=== PATIENT | female | born 1940 | race Caucasian/White ===

== ENCOUNTER 2017-02-09 19:50 | Inpatient (IN) ==
--- NOTE | 2017-02-09 20:17 | Emergency Department Note ---
Addendum entered and electronically signed by Max Mariano DO 02/09/17 22:09 : EKG shows NSR with HR of 93. No change from prior. Alexis is normal. No ST deviation. Original Note: Disposition Clinical Impression: Abnormal CT of brain TIA (transient ischemic attack) Qualifiers: Transient cerebral ischemia type: unspecified Qualified Code(s): G45.9 - Transient cerebral ischemic attack, unspecified Disposition: Admitted As Inpatient Condition: Good Referrals: Unassigned,Provider [Non-Partnered Physician] - Forms: ED Satisfaction Letter General Adult HPI - General Chief complaint: ED Altered Mental Status Stated complaint: confusion Time Seen by Provider: 02/09/17 20:04 Source: patient, family Limitations: no limitations Nursing Notes Reviewed: Yes Vital Signs Reviewed: Yes - History of Present Illness HPI Narrative: 76-year-old female who reports that she was talking on the phone with her friend and she became acutely confused while on the phone. She did not have slurred speech but could not find the words and was becoming very frustrated because she was unable to find the words for anything that she was trying to say. It began at approximately 7 PM and lasted approximately 10 minutes. It has since completely resolved. She denies having any new paresthesias or weakness while the event occurred. She does admit to a prior history of a TIA a few years ago during which she had a very similar episode. She was placed on aspirin and a statin after her last episode. Her other medical problems include hypertension for which she takes hydrochlorothiazide and GERD. Pain Scale: 0 Improves with: nothing Worsens with: nothing Associated symptoms: Reports: denies other symptoms Treatments Prior to Arrival: none - Related Data Home Medications Medication Instructions Recorded Confirmed Aspirin [Lo-Dose Aspirin EC] 81 mg PO QDPC 11/08/16 11/08/16 Atorvastatin Calcium [Lipitor] 20 mg PO HS 11/08/16 11/08/16 Cetirizine HCl [Zyrtec] 5 mg PO BID 11/08/16 11/08/16 Lansoprazole [Prevacid] 15 mg PO DAILY 11/08/16 11/08/16 Oxybutynin [Ditropan] 5 mg PO BID 11/08/16 11/08/16 Potassium Chloride [Klor-Con 10] 30 meq PO TID 11/08/16 11/08/16 diazePAM [Valium] 5 mg PO BID 11/08/16 11/08/16 hydroCHLOROthiazide 25 mg PO DAILY 11/08/16 11/08/16 [Hydrochlorothiazide] Previous Rx's Medication Instructions Recorded Ibuprofen [Motrin] 600 mg PO Q6HR PRN #60 tab 11/08/16 Allergies Allergy/AdvReac Type Severity Reaction Status Date / Time No Known Allergies Allergy Verified 11/06/16 09:55 All systems ED: reviewed and negative except as stated. Constitutional: Denies: fever ENT ED: Denies: throat pain Cardiovascular: Denies: chest pain Respiratory: Denies: cough Gastrointestinal: Denies: abdominal pain, nausea, vomiting Genitourinary: Denies: dysuria Musculoskeletal: Denies: back pain Integumentary: Denies: rash Neurological: Denies: headache Past Medical History - Past Medical History Medical history: Reports: GERD, hypertension, TIA Psychiatric history: Reports: anxiety - Social History Smoking Status: Never smoker Smokeless Tobacco Status: No Alcohol use: Reports: none Drug use: Reports: none Physical Exam - General Limitations: no limitations General appearance: alert - Head Head exam: atraumatic - Eye Eye exam: Present: normal appearance, PERRL - ENT ENT exam: normal exam, normal oropharynx - Neck Neck exam: Present: normal inspection - Chest Chest inspection: Present: normal inspection - Respiratory Respiratory exam: Present: normal lung sounds bilaterally. Absent: respiratory distress - Cardiovascular Cardiovascular exam: Present: regular rate, normal rhythm - Abdominal Exam Abdominal exam: Present: soft, Non-Tender - Extremities Exam Extremities exam: Present: normal inspection - Neurological Exam Neurological exam: Present: alert, oriented X3 - Psychiatric Psychiatric exam: Present: normal affect, normal mood - Skin Skin exam: Present: warm, dry Course Course Narrative: Her symptoms are concerning for a TIA. This would be failure on aspirin therapy. We will do a head CT and screening lab work with likely admission to the hospital. Her NIH stroke scale is 0 at this time. She does not have any neurologic symptoms currently. She is not having a headache. Lab work is stable. CT scan of the head shows possible loss of rodriguez-white differentiation in the right MCA distribution. On reexamination she still has an NIH score of 0 and currently has no symptoms. She will be admitted to the hospital for diagnosis of TIA with need for MRI. Her urine is mildly abnormal. Will culture, she does not need empirically treated. She is asymptomatic Vital Signs Temperature 97.7 F 02/09/17 19:54 Pulse Rate 95 02/09/17 19:54 Respiratory Rate 16 02/09/17 19:54 Blood Pressure 175/84 02/09/17 19:54 O2 Sat by Pulse Oximetry 97 02/09/17 19:54 Temperature 97.7 F 02/09/17 19:54 Pulse Rate 95 02/09/17 19:54 Respiratory Rate 16 02/09/17 19:54 Blood Pressure 175/84 02/09/17 19:54 O2 Sat by Pulse Oximetry 97 02/09/17 19:54 Oxygen Delivery Oxygen Delivery Room Air Medical Decision Making - Medical Records Medical records reviewed: Yes I reviewed the patient's medical records. - Lab Data Lab results reviewed: Yes I reviewed the patient's lab results. Result diagrams: 02/09/17 20:19 02/09/17 20:19 Lab Results 02/09/17 02/09/17 02/09/17 Range/Units 20:09 20:19 20:19 WBC 8.5 (4.3-11.1) K/mcL RBC 4.87 (3.82-4.97) M/mcL Hgb 14.2 (11.5-15.4) g/dL Hct 42.4 (35.3-44.9) % MCV 87.1 (83.0-100.0) fL MCH 29.2 (28.0-33.3) pg MCHC 33.5 (31.6-35.5) g/dL RDW 13.2 (11.5-14.5) % Plt Count 247 (140-400) K/mcL MPV 11.7 (9.4-12.4) fL Immature Gran % 0.2 (0-4) % Seg Neutrophils % 53.2 % Lymphocytes % 28.9 % Monocytes % 11.9 % Eosinophils % 5.1 % Basophils % 0.7 % Neutrophils # 4.5 (1.6-8.9) K/mcL Lymphocytes # 2.5 (0.6-4.6) K/mcL Monocytes # 1.0 (0.0-1.3) K/mcL Eosinophils # 0.4 (0.0-0.6) K/mcL Basophils # 0.1 (0.0-0.2) K/mcL PT 11.0 (9.4-12.1) Seconds INR 1.0 Sodium (136-145) mEq/L Potassium (3.5-4.5) mEq/L Chloride (98-109) mEq/L Carbon Dioxide (19-29) mEq/L BUN (7-20) mg/dL Creatinine (0.57-1.11) mg/dL Est GFR ( Amer) (> 60) Est GFR (Non-Af Amer) (> 60) BUN/Creatinine Ratio (6-26) Glucose (70-99) mg/dL POC Glucose 136 H (58-89) Calculated Osmolality (280-300) Calcium (8.6-10.8) mg/dL Troponin I (0-0.03) ng/mL Urine Color (Yellow) Urine Clarity (Clear) Urine pH (5.0-8.0) pH Units Ur Specific Tyler (1.010-1.025) Urine Protein (Neg-Trace) mg/dL Urine Glucose (UA) (Normal) mg/dL Urine Ketones (Negative) mg/dL Urine Blood (Negative) Urine Nitrite (Negative) Urine Bilirubin (Negative) Urine Urobilinogen (Normal) mg/dL Ur Leukocyte Esterase (Negative) Urine Microscopic RBC (0-3) per hpf Urine Microscopic WBC (0-3) per hpf Ur Squamous Epith Cells (None-Few) per lpf Urine Bacteria (None-Few) per hpf Hyaline Casts (None-Few) per lpf Ur Culture Indicated? (NO) 02/09/17 02/09/17 02/09/17 Range/Units 20:19 20:19 20:37 WBC (4.3-11.1) K/mcL RBC (3.82-4.97) M/mcL Hgb (11.5-15.4) g/dL Hct (35.3-44.9) % MCV (83.0-100.0) fL MCH (28.0-33.3) pg MCHC (31.6-35.5) g/dL RDW (11.5-14.5) % Plt Count (140-400) K/mcL MPV (9.4-12.4) fL Immature Gran % (0-4) % Seg Neutrophils % % Lymphocytes % % Monocytes % % Eosinophils % % Basophils % % Neutrophils # (1.6-8.9) K/mcL Lymphocytes # (0.6-4.6) K/mcL Monocytes # (0.0-1.3) K/mcL Eosinophils # (0.0-0.6) K/mcL Basophils # (0.0-0.2) K/mcL PT (9.4-12.1) Seconds INR Sodium 140 (136-145) mEq/L Potassium 3.3 L (3.5-4.5) mEq/L Chloride 108 (98-109) mEq/L Carbon Dioxide 22 (19-29) mEq/L BUN 12 (7-20) mg/dL Creatinine 0.78 (0.57-1.11) mg/dL Est GFR ( Amer) > 60 (> 60) Est GFR (Non-Af Amer) > 60 (> 60) BUN/Creatinine Ratio 15 (6-26) Glucose 157 H (70-99) mg/dL POC Glucose (58-89) Calculated Osmolality 293 (280-300) Calcium 9.2 (8.6-10.8) mg/dL Troponin I 0.00 (0-0.03) ng/mL Urine Color Yellow (Yellow) Urine Clarity Clear (Clear) Urine pH 6.5 (5.0-8.0) pH Units Ur Specific Tyler 1.010 (1.010-1.025) Urine Protein Negative (Neg-Trace) mg/dL Urine Glucose (UA) Normal (Normal) mg/dL Urine Ketones Negative (Negative) mg/dL Urine Blood Negative (Negative) Urine Nitrite Negative (Negative) Urine Bilirubin Negative (Negative) Urine Urobilinogen Normal (Normal) mg/dL Ur Leukocyte Esterase Trace H (Negative) Urine Microscopic RBC 0-3 (0-3) per hpf Urine Microscopic WBC 5-15 H (0-3) per hpf Ur Squamous Epith Cells Many H (None-Few) per lpf Urine Bacteria None Seen (None-Few) per hpf Hyaline Casts None Seen (None-Few) per lpf Ur Culture Indicated? YES A (NO) - Radiology Data Radiology results reviewed: Yes I reviewed the patient's radiology results. - EKG Data EKG #1 EKG attestation: Yes I reviewed and interpreted this EKG. EKG shows normal: sinus rhythm Rate: normal Rhythm: NSR Alexis/QRS: normal When compared to previous EKG there are: no significant changes Interpretation: no acute changes Attestation Statement - Attestation Attestation: I, Fernando Álvarez MD, personally evaluated this patient and discussed their management with the resident physician. I reviewed the resident's note and agree with the documented findings, medical decision making, and plan of care. 76-year-old female presents to the emergency department with a complaint of TIA symptoms earlier this evening. Patient states that she was talking with a friend and she suddenly started having difficulty getting out what she wanted to say. She had trouble finding the words and pronouncing them. She felt a little confused. She states she turned on the news but did not seem to comprehend what they were saying on the television. This started improving rather quickly and symptoms have now totally resolved. She states the entire episode lasted about 30 minutes. She did have some mild numbness in both hands. She states that she had a similar episode about 8 years ago diagnosed as a TIA and she takes aspirin daily. She does admit to some mild headache earlier in the day but none at the time of this episode and no headache at present. On examination patient is a well-developed obese elderly female in no acute distress. She is alert and oriented 3. There is no cyanosis or diaphoresis. Neck is supple and nontender with no lymphadenopathy. No carotid bruits. Breath sounds are clear and equal bilaterally. Heart regular rate and rhythm. Abdomen is soft and nontender with normal bowel sounds. No gross focal neurological deficits. Labs reviewed. Head CT reviewed with some suspicious findings of poor differentiation between the rodriguez and white matter. No acute changes on EKG. The hospitalist, Dr. Wilcox, was consulted and accepted admission of the patient.
[2017-02-09 20:27] LABS: Basophils # 0.1 K/mcL (0.0-0.2); Basophils % 0.7 %; Eosinophils # 0.4 K/mcL (0.0-0.6); Eosinophils % 5.1 %; Hematocrit 42.4 % (35.3-44.9); Hemoglobin 14.2 g/dL (11.5-15.4); Immature Granulocytes % 0.2 % (0-4); Lymphocytes # 2.5 K/mcL (0.6-4.6); Lymphocytes % 28.9 %; Mean Corpuscular HGB Conc 33.5 g/dL (31.6-35.5); Mean Corpuscular Hemoglobin 29.2 pg (28.0-33.3); Mean Corpuscular Volume 87.1 fL (83.0-100.0); Mean Platelet Volume 11.7 fL (9.4-12.4); Monocytes % 11.9 %; Neutrophils # 4.5 K/mcL (1.6-8.9); Platelet Count 247 K/mcL (140-400); Red Blood Count 4.87 M/mcL (3.82-4.97); Red Cell Distribution Width 13.2 % (11.5-14.5); Segmented Neutrophils % 53.2 %
[2017-02-09 20:41] LABS: BUN/Creatinine Ratio 15 (6-26); Blood Urea Nitrogen 12 mg/dL (7-20); Calcium 9.2 mg/dL (8.6-10.8); Carbon Dioxide 22 mEq/L (19-29); Chloride 108 mEq/L (98-109); Glucose 157 mg/dL (70-99); Osmolality,Calculated 293 (280-300); Potassium 3.3 mEq/L (3.5-4.5); Sodium 140 mEq/L (136-145); eGFR For African Americans > 60 (> 60); eGFR For Non-African Americans > 60 (> 60)
[2017-02-09 20:43] LABS: Bilirubin,Urine Negative (Negative); Blood,Urine Negative (Negative); Clarity,Urine Clear (Clear); Color,Urine Yellow (Yellow); Glucose,Urine (UA) Normal (Normal); Ketones,Urine Negative (Negative); Leukocyte Esterase,Urine Trace (Negative); Nitrite,Urine Negative (Negative); PH,Urine 6.5 pH Units (5.0-8.0); Protein,Urine Negative (Neg-Trace); Urobilinogen,Urine Normal (Normal)
[2017-02-09 20:46] LABS: Bacteria,Urine None Seen per hpf (None-Few); Hyaline Casts,Urine None Seen per lpf (None-Few); RBC,Urine 0-3 per hpf (0-3); Squamous Epithelial Cell,Urine Many per lpf (None-Few)
[2017-02-09] MEDS ORDERED: Aspirin 325 MG TABLET PO ONE (22:07)
[2017-02-09] MEDS ORDERED: Ondansetron 4 MG/2 ML VIAL IVP PRN (23:27)
[2017-02-09] MEDS ORDERED: Naloxone 0.4 MG/ML INJ IVP PRN (23:27)
[2017-02-09] MEDS ORDERED: *HR* Morphine 2 MG/ML SYRINGE IVP PRN (23:27)
--- NOTE | 2017-02-09 23:33 | Internal Med History&Physical ---
Date of Encounter: 02/10/17 Time of Encounter: 23:20 Assessment and Plan (1) TIA (transient ischemic attack) Current visit: Yes Status: Acute Transient ischemic attack - with brief confusion and slurred speech - symptoms now resolved Continue Aspirin, Simvastatin EKG - normal sinus rhythm with no acute ST-T changes Troponin - negative Chest x-ray - no acute process CT head - possible loss of rodriguez-white matter differentiation in right temporal region MRI brain - pending Echocardiogram - pending Carotid Doppler - pending Cardiac telemetry, continue to monitor closely Qualifiers: Transient cerebral ischemia type: unspecified Qualified Code(s): G45.9 - Transient cerebral ischemic attack, unspecified (2) Hypertension Current visit: Yes Status: Chronic Essential hypertension, uncontrolled, continue home dose of HCTZ, monitor Qualifiers: Hypertension type: essential hypertension Qualified Code(s): I10 - Essential (primary) hypertension (3) DVT prophylaxis Current visit: Yes Status: Acute Continue heparin subcutaneous Internal Medicine - H&P: HPI Chief complaint: Slurred speech, confusion Admitted From: Emergency Dept Plans for Post Hospital Care: Home History of present illness: Ms. Blanco is a 76 year old female with past medical history of GERD, hypertension, TIA and anxiety. Patient presents the ED with complaints of transient slurred speech and confusion. Examined in the room. Patient is awake and alert. Not in any distress. Able to provide all history. Daughter is at bedside. Patient states at about 6 PM she was on the phone with her friend, and she had a brief episode where she had difficulty verbalizing and was confused. Daughter was contacted and patient was then brought to the ED. Patient now seems to be back at baseline. She is verbalizing well has no focal deficits. She is able to follow commands well. She is awake and alert and oriented 3. Patient denies chest pain, denies shortness of breath, denies palpitations, denies vomiting or headache. She states she has chronic dizziness due to Meniere's disease. Patient states she remembers the episode of her transient confusion and difficulty verbalizing. She states she did not have any focal weakness. She states it lasted for a few minutes and then resolved. Patient states she has had a TIA in the past. No other acute complaints at this time. Initial workup in the ED is negative. MRI of the head is recommended. Patient will also need echocardiogram and carotid Dopplers. Chest x-ray is negative. Patient will be on aspirin and statin. CODE STATUS full code. Past Med Surg Social Fam HX - Past Medical History Medical history: GERD, hypertension, TIA Psychiatric history: anxiety - Past Surgical History Surgical History: hip replacement, knee replacement - Social History Smoking Status: Never smoker Smokeless Tobacco Status: No Alcohol use: none Drug use: none Internal Medicine - H&P: Meds Aspirin [Lo-Dose Aspirin EC] 81 mg PO QDPC 11/08/16 [History] Atorvastatin Calcium [Lipitor] 20 mg PO HS 11/08/16 [History] Cetirizine HCl [Zyrtec] 5 mg PO BID 11/08/16 [History] Oxybutynin [Ditropan] 5 mg PO BID 11/08/16 [History] Potassium Chloride [Klor-Con 10] 30 meq PO TID 11/08/16 [History] hydroCHLOROthiazide [Hydrochlorothiazide] 25 mg PO DAILY 11/08/16 [History] Meclizine [Antivert] 25 mg PO ONCE 02/09/17 [History] Omeprazole Magnesium [Prilosec Otc] 20 mg PO DAILY 02/09/17 [History] Omeprazole [PriLOSEC] 20 mg PO DAILY 02/09/17 [History] Promethazine [Phenergan] 25 mg PO PRN PRN 02/09/17 [History] diazePAM [Valium] 5 mg PO BID 02/09/17 [History] 3 Allergy/AdvReac Type Severity Reaction Status Date / Time No Known Allergies Allergy Verified 11/06/16 09:55 All Systems PM: A 10-system review of systems was performed and is negative for pertinent findings except as documented above in the HPI. - Constitutional Constitutional: no fatigue, no fever(s), no weakness - EENT Eyes: no blurry vision - Cardiovascular Cardiovascular ROS IM: no chest pain, no diaphoresis, no dyspnea, no dyspnea on exertion, no edema, no lightheadedness, no orthopnea, no palpitations, no syncope - Respiratory Respiratory: no cough, no dyspnea, no hemoptysis, no dyspnea on exertion, no wheezing, no chest congestion - Gastrointestinal Gastrointestinal: no abdominal pain, no belching, no bloating, no cramping, no diarrhea, no hematemesis, no hematochezia, no nausea, no vomiting - Genitourinary Genitourinary: no dysuria - Musculoskeletal Musculoskeletal ROS IM: no back pain - Neurological Neurological ROS: abnormal speech, confusion, dizziness, no abnormal gait, no convulsions, no focal weakness, no loss of vision, no numbness, no tingling - Constitutional Vitals: Temp Pulse Resp BP Pulse Ox 97.7 F 82 18 154/78 97 02/09/17 19:54 02/09/17 22:56 02/09/17 22:56 02/09/17 22:56 02/09/17 22:56 General appearance: Present: cooperative, A&O X 3, morbidly obese, pleasant, no acute distress, answers questions appropriately - Head Head exam: Present: atraumatic - Eye Eye exam: Present: EOMI - ENT ENT exam: Present: mucous membranes moist - Respiratory Respiratory exam: Present: CTAB. Absent: rales, rhonchi, wheezes, tachypnea - Cardiovascular Cardiovascular exam: Present: RRR, +S1, +S2 - GI/Abdominal GI/Abdominal exam: Present: soft. Absent: distended, firm, guarding, tenderness - Extremities Exam Extremities exam: Present: radial pulses palpable and symmetrical. Absent: calf tenderness, cyanotic, pedal edema - Neurological Exam Neurological exam: Present: alert, CN II-XII intact, oriented X3, no focal deficits. Absent: pronater drift, facial droop, speech deficit Internal Med - H&P Results - Labs CBC & Chem 7: 02/09/17 20:19 02/09/17 20:19
[2017-02-10] MEDS: *HR* Heparin 5,000 UNIT/ML VIAL SQ SCH ×4 (00:37→23:31)
[2017-02-10 03:10] LABS: BUN/Creatinine Ratio 19 (6-26); Blood Urea Nitrogen 13 mg/dL (7-20); Carbon Dioxide 26 mEq/L (19-29); Chloride 107 mEq/L (98-109); Glucose 119 mg/dL (70-99); Magnesium 1.6 mg/dL (1.6-2.6); Osmolality,Calculated 291 (280-300); Potassium 3.2 mEq/L (3.5-4.5); Sodium 140 mEq/L (136-145); eGFR For African Americans > 60 (> 60); eGFR For Non-African Americans > 60 (> 60)
[2017-02-10] MEDS ORDERED: Famotidine 20 MG/2 ML VIAL IVP SCH (06:00)
[2017-02-10] MEDS: Aspirin Enteric Coated 81 MG Tablet PO SCH (08:20)
[2017-02-10] MEDS: hydroCHLOROthiazide 25 MG TABLET PO SCH (08:20)
--- NOTE | 2017-02-10 12:44 | Neurology - Consult Note ---
Date of Encounter: 02/10/17 Time of Encounter: 09:30 Assessment and Plan (1) TIA (transient ischemic attack) Current Visit: Yes Status: Acute This patient was apparently seems to have symptoms which are quite typical of a TIA to the previous history of TIA in the past for similar episodes now she is back to her baseline as patient has been taking an aspirin on a regular basis and now she had this event I suggest that she should be started on another antiplatelet agent like Plavix and we can discontinue aspirin after 2 days of overlap. She would certainly require stroke workup including MRI of the brain especially when her CT scan does some questionable abnormality need to exclude any structural abnormality And at the same time need to see indeed if she had an infarct on it was only TIA . Patient would also need a carotid duplex as well as echocardiogram and need to monitor her cholesterol. At this time she seems to be back to her baseline do not think that she would require any rehabilitation or physical therapy evaluation Qualifiers: Transient cerebral ischemia type: unspecified Qualified Code(s): G45.9 - Transient cerebral ischemic attack, unspecified (2) Abnormal CT of brain Current Visit: Yes Status: Acute Ct scan shows conCERN of decrease in rodriguez-white differentiation in the temporal lobe will get an MRI to further clarify that (3) Hypertension Current Visit: Yes Status: Chronic Qualifiers: Hypertension type: essential hypertension Qualified Code(s): I10 - Essential (primary) hypertension History of Present Illness HPI: Ms. Blanco is a 76 year old female who is admitted with TIA, according to pt, she was talking on the phone with her friend and she became somewhat confused while on the phone. apparently she could not find the words though she knew what she want to say and because of that frustrated, later when her daughter talk to her on phone she noticed the same but slowly she started coming back to her baseline, it lasted approximately 10 minutes. she was complainig of some tingling in her arms but no weakness, also has mild headaches at that time, she has history of a TIA a few years ago during which she had a very similar episode. She was placed on aspirin and a statin after her last episode. she has history of hypertension for which she takes hydrochlorothiazide. Past Med Surg Social Fam HX - Past Medical History Medical history: GERD, hypertension, TIA Psychiatric history: anxiety - Past Surgical History Surgical History: hip replacement, knee replacement - Social History Smoking Status: Never smoker Smokeless Tobacco Status: No Alcohol use: none Drug use: none Medications and Allergies Aspirin [Lo-Dose Aspirin EC] 81 mg PO QDPC 11/08/16 [History] Atorvastatin Calcium [Lipitor] 20 mg PO HS 11/08/16 [History] Cetirizine HCl [Zyrtec] 5 mg PO BID 11/08/16 [History] Oxybutynin [Ditropan] 5 mg PO BID 11/08/16 [History] Potassium Chloride [Klor-Con 10] 30 meq PO TID 11/08/16 [History] hydroCHLOROthiazide [Hydrochlorothiazide] 25 mg PO DAILY 11/08/16 [History] Meclizine [Antivert] 25 mg PO ONCE 02/09/17 [History] Omeprazole Magnesium [Prilosec Otc] 20 mg PO DAILY 02/09/17 [History] Omeprazole [PriLOSEC] 20 mg PO DAILY 02/09/17 [History] Promethazine [Phenergan] 25 mg PO PRN PRN 02/09/17 [History] diazePAM [Valium] 5 mg PO BID 02/09/17 [History] 3 Allergy/AdvReac Type Severity Reaction Status Date / Time No Known Allergies Allergy Verified 11/06/16 09:55 All Systems: A 10-system review of systems was performed and is negative for pertinent findings except as documented above in the HPI. Physical Examination - Vital Signs Vital Signs: Initial Vital Signs Temp Pulse Resp BP Pulse Ox 97.7 F 95 16 175/84 97 02/09/17 19:54 02/09/17 19:54 02/09/17 19:54 02/09/17 19:54 02/09/17 19:54 - Exam Exam: HEART S1 S2 AUDIBLE, ABDOMEN SOFT EXT NO PEDAL EDEMA - Neurologic Detailed motor examination: full strength in all major muscle groups Motor examination - right side: 5/5: deltoids, biceps, triceps, wrist flexion, wrist extension, director game, hip flexors, tibialis Anterior, quadriceps, toe extension (EHL), plantarflexion Motor examination - left side: 5/5: deltoids, biceps, triceps, wrist flexion, wrist extension, hip flexors, director game, quadriceps, tibialis Anterior, toe extension (EHL), plantarflexion Mental Status Examination: awake, alert, oriented to person, oriented to place, oriented to time, follows commands appropriately, answers questions appropriately, no agnosia, no aphasia, no aproxia Cranial nerve examination: PERRL, EOMI, visual dunaway intact, corneal reflexes brisk symmetrically, sensory to face intact, mastication intact, no facial asymmetry is present, no dysarthria, hearing is intact symmetrically, soft palate elevates bilaterally upon phonation, gag reflex intact, flexes SCM and trapezius muscles symmetrically with full power, tongue protrudes midline, no atrophy or facial fasiculations present Cerebellar examination: no dysmetria, performs finger to nose and heel to tam symmetrically without ataxia, no gait ataxia, no truncal ataxia, no difficulty with rapid alternating movements Results - Laboratory Findings CBC and BMP: 02/09/17 20:19 02/10/17 02:50 Abnormal lab findings: Abnormal lab results Potassium 3.2 mEq/L (3.5-4.5) L 02/10/17 02:50 Glucose 119 mg/dL (70-99) H 02/10/17 02:50 POC Glucose 116 (58-89) H 02/10/17 00:10 Ur Leukocyte Esterase Trace (Negative) H 02/09/17 20:37 Urine Microscopic WBC 5-15 per hpf (0-3) H 02/09/17 20:37 Ur Squamous Epith Cells Many per lpf (None-Few) H 02/09/17 20:37 Ur Culture Indicated? YES (NO) A 02/09/17 20:37 Consult Discharge Plan - Plan Referrals: Khalida Smith MD [Primary Care Provider] -
--- NOTE | 2017-02-10 17:35 | Internal Med Progress Note ---
Date of Encounter: 02/10/17 Time of Encounter: 10:30 - Assessment and plan (1) TIA (transient ischemic attack) Current Visit: Yes Status: Acute Assessment and plan: Recurrent TIA. Seen by neuro. Awaiting MRI and further testing. To be switched to Plavix. Anticipate d/c tomorrow if work up is negative. Qualifiers: Transient cerebral ischemia type: carotid artery syndrome (hemispheric) Qualified Code(s): G45.1 - Carotid artery syndrome (hemispheric) (2) Hypokalemia Current Visit: Yes Status: Acute Assessment and plan: Replace today. (3) Hypertension Current Visit: Yes Status: Chronic Assessment and plan: Continue home medications. Qualifiers: Hypertension type: essential hypertension Qualified Code(s): I10 - Essential (primary) hypertension (4) Morbid obesity with BMI of 45.0-49.9, adult Current Visit: Yes Status: Chronic - Subjective Interval history: Ms. Blanco is currently admitted for acute TIA. She remains moderate to high risk due to potential for worsening neurologic issues. Ms. Blanco feels OK at this time. No CP or SOB. No fever or chills. Neuro symptoms have resolved and not returned. Awaiting further testing at this time. - Constitutional Vitals: Temp Pulse Resp BP Pulse Ox 98.2 F 72 17 147/80 95 02/10/17 16:00 02/10/17 16:00 02/10/17 16:00 02/10/17 16:00 02/10/17 16:34 General appearance: Present: cooperative, A&O X 3, morbidly obese, pleasant, answers questions appropriately - Head Head exam: Present: normocephalic - Eye Eye exam: Present: EOMI, conjuntiva pink - ENT ENT exam: Present: mucous membranes moist - Respiratory Respiratory exam: Present: CTAB. Absent: rales, rhonchi, wheezes - Cardiovascular Cardiovascular exam: Present: RRR. Absent: tachycardia - GI/Abdominal GI/Abdominal exam: Present: soft. Absent: tenderness - Extremities Exam Extremities exam: Present: warm. Absent: tenderness - Neurological Exam Neurological exam: Present: alert, oriented X3 - Skin Skin exam: Present: warm. Absent: rash Internal Medicine: Result - Labs CBC & Chem 7: 02/09/17 20:19 02/10/17 02:50 Labs: BMP 02/10/17 02:50 Sodium 140 Potassium 3.2 L Chloride 107 Carbon Dioxide 26 BUN 13 Creatinine 0.69 Glucose 119 H Calcium 9.0 Cardiac Enzymes 02/10/17 02/10/17 02/10/17 Range/Units 02:50 08:59 14:12 Troponin I 0.01 0.00 0.01 (0-0.03) ng/mL - ABG Interpretation ABG results: PT/INR, D-dimer PT 11.0 Seconds (9.4-12.1) 02/09/17 20:19 - Impressions Impressions Echocardiogram 02/10/17 23:32 Impressions: LVEF 60-65%. Normal LV chamber size, wall thickness and function. Moderate left ventricular diastolic dysfunction. Normal right ventricular structure and function. Suboptimal image quality, but no obvious evidence of a PFO with agitated saline contrast. No evidence of pulmonary hypertension. No significant valvular dysfunction. Left Ventricular Wall Motion: Rest Echo Findings All wall segments showed normal motion. Findings: Study Quality * Technically adequate exam. ECG Findings * Normal sinus rhythm. Left Ventricle * LVEF 60-65%. * Normal LV chamber size, wall thickness and function. * Moderate left ventricular diastolic dysfunction. Right Ventricle * Normal right ventricular structure and function. Left Atrium * Mildly dilated left atrium. Right Atrium * Mildly dilated right atrium. Interatrial Septum * Suboptimal image quality, but no obvious evidence of a PFO with agitated saline contrast. Aortic Valve * Trileaflet aortic valve with normal function. * Trace aortic regurgitation. * No aortic stenosis. Mitral Valve * Normal mitral valve structure and function. * No mitral regurgitation. * No mitral stenosis. Tricuspid Valve * Normal tricuspid valve structure and function. * Trace tricuspid regurgitation. * No evidence of pulmonary hypertension. Pulmonic Valve * Normal pulmonic valve structure and function. * No pulmonic regurgitation. Aorta * Normally sized aortic root. Pericardium * The pericardium appears normal. IVC * Normal IVC dimensions and inspiratory collapse. Pulmonary Artery * Normal visualized portions of the main pulmonary artery. Consult Discharge Plan - Plan Referrals: Khalida Smith MD [Primary Care Provider] -
[2017-02-11 06:06] LABS: Hematocrit 40.5 % (35.3-44.9); Hemoglobin 13.6 g/dL (11.5-15.4); Mean Corpuscular HGB Conc 33.6 g/dL (31.6-35.5); Mean Corpuscular Hemoglobin 29.6 pg (28.0-33.3); Mean Platelet Volume 11.8 fL (9.4-12.4); Platelet Count 229 K/mcL (140-400); Red Cell Distribution Width 13.2 % (11.5-14.5)
[2017-02-11 06:22] LABS: BUN/Creatinine Ratio 23 (6-26); Blood Urea Nitrogen 17 mg/dL (7-20); Calcium 9.4 mg/dL (8.6-10.8); Carbon Dioxide 27 mEq/L (19-29); Chloride 106 mEq/L (98-109); Cholesterol 117 mg/dL (< 200); Glucose 114 mg/dL (70-99); HDL Cholesterol 39 mg/dL (40-59); LDL Cholesterol,Calculated 56 mg/dL (0-99); Magnesium 1.8 mg/dL (1.6-2.6); Osmolality,Calculated 290 (280-300); Potassium 3.1 mEq/L (3.5-4.5); Sodium 139 mEq/L (136-145); Triglycerides 110 mg/dL (< 150); eGFR For African Americans > 60 (> 60); eGFR For Non-African Americans > 60 (> 60)
[2017-02-11] MEDS ORDERED: Potassium Chloride Elixir 20 MEQ/15 ML UDC PO ONE (07:18)
[2017-02-11 08:25] VITALS: BP 146/82
--- NOTE | 2017-02-11 08:39 | Discharge Summary ---
<Hardik Powers - Last Filed: 02/11/17 20:12> Date of Encounter: 02/11/17 - Discharge Diagnosis (1) TIA (transient ischemic attack) Priority: Primary Status: Acute Qualifiers: Transient cerebral ischemia type: carotid artery syndrome (hemispheric) Qualified Code(s): G45.1 - Carotid artery syndrome (hemispheric) (2) Hypokalemia Priority: Secondary Status: Acute (3) Hypertension Priority: Secondary Status: Chronic Qualifiers: Hypertension type: essential hypertension Qualified Code(s): I10 - Essential (primary) hypertension (4) Morbid obesity with BMI of 45.0-49.9, adult Priority: Secondary Status: Chronic - Discharge Medications Prescriptions: Clopidogrel [Plavix] 75 mg PO DAILY #14 tab Home Medications: Atorvastatin Calcium [Lipitor] 20 mg PO HS 11/08/16 [History] Cetirizine HCl [Zyrtec] 5 mg PO BID 11/08/16 [History] Oxybutynin [Ditropan] 5 mg PO BID 11/08/16 [History] hydroCHLOROthiazide [Hydrochlorothiazide] 25 mg PO DAILY 11/08/16 [History] Omeprazole Magnesium [Prilosec Otc] 20 mg PO DAILY 02/09/17 [History] diazePAM [Valium] 5 mg PO BID PRN 02/09/17 [History] Ibuprofen [Motrin] 600 mg PO Q6HR PRN 02/10/17 [History] Megestrol Acetate [Megace] 40 mg PO BID 02/10/17 [History] Aspirin Enteric Coated [Aspirin EC] 81 mg PO QDPC 02/11/17 [Rx] Calcium Carbonate [Tums] 1,000 mg PO Q4HR PRN 02/11/17 [Rx] Clopidogrel [Plavix] 75 mg PO DAILY #14 tab 02/11/17 [Rx] Allergies/Adverse Reactions: 3 Allergy/AdvReac Type Severity Reaction Status Date / Time No Known Allergies Allergy Verified 11/06/16 09:55 Procedures/tests Complete & Pending: Procedures Performed prior 72 hours Category Date Time Status MR head/brain wo con [MR] Routine MRI 02/09/17 23:32 Completed ECG 12 lead ECG [ECG] AM 0600 Y 02/10/17 06:00 Ordered EV carotid duplex imaging BI Routine Y 02/10/17 23:32 Completed EV echocardiogram Routine Y 02/10/17 23:32 Completed Date of admission: 02/09/17 23:10 Primary care physician: Khalida Smith, Consults: 02/09/17 23:26 Consult to Neurology [CONS] Routine Consulting Provider: [facility] Reason for Consult: TIA Call Completed: No 02/09/17 23:30 Consult to Occupational Therapy [CONS] Routine Comment: Evaluate, develop and implement POC Reason for Consult: TIA, OT eval Consult to Physical Therapy [CONS] Stat Comment: Evaluate, develop and implement POC Reason for Consult: TIA, PT eval - Patient Status Disposition: Home, Self-Care Condition: Good - Discharge Instructions Instructions: Clopidogrel (By mouth), Transient Ischemic Attack (DC) Follow Up With: Shahrzad Joshi CNP [Advanced Practice Nurse] - 02/18/17 10:30 am Khalida Smith MD [Primary Care Provider] - Additional Instructions: Follow-up with your primary care physician in 1 week. Continue taking home medications. Take Aspirin tomorrow and then stop. Begin taking Plavix. Return to the ED if symptoms worsen or new symptoms arise. Hospital course: Ms. Blanco is a 76 year old female - Time Spent with Patient Total time spent providing and/or coordinating discharge services: - Constitutional Vitals: Temp Pulse Resp BP Pulse Ox 97.5 F L 80 18 146/82 93 02/11/17 07:12 02/11/17 07:12 02/11/17 07:12 02/11/17 07:12 02/11/17 07:12 - Attending Attestation I examined this patient and my medical decision-making was reviewed with the Resident Physician on 02/11/17. I agree with the documented findings, disposition and treatment plan as described except to the extent set forth below. Ms. Blanco has been admitted for TIA which has resolved. She is afebrile with stable vitals. She is ready for discharge home. Exam alert Comfortable Heart reg No wheeze Plan D/C home today. <Nidhi Ley - Last Filed: 02/11/17 21:14> Date of Encounter: 02/11/17 Time of Encounter: 10:28 Procedures/tests Complete & Pending: Procedures Performed prior 72 hours Category Date Time Status MR head/brain wo con [MR] Routine MRI 02/09/17 23:32 Completed ECG 12 lead ECG [ECG] AM 0600 Y 02/10/17 06:00 Ordered EV carotid duplex imaging BI Routine Y 02/10/17 23:32 Completed EV echocardiogram Routine Y 02/10/17 23:32 Completed Date of admission: 02/09/17 23:10 Primary care physician: Khalida Smith, Consults: 02/09/17 23:26 Consult to Neurology [CONS] Routine Consulting Provider: [facility] Reason for Consult: TIA Call Completed: No 02/09/17 23:30 Consult to Occupational Therapy [CONS] Routine Comment: Evaluate, develop and implement POC Reason for Consult: TIA, OT eval Consult to Physical Therapy [CONS] Stat Comment: Evaluate, develop and implement POC Reason for Consult: TIA, PT eval - Patient Status Functional capacity at discharge: independent ambulation Overall status at discharge: patient is back to baseline - Diet and Activity Activity: increase activity as tolerated Diet: advance to your usual diet Hospital course: Ms. Blanco is a 76 year old female with a past medical history of TIAs on aspirin, hypertension, and a nonsmoker presented to the ED after a period of 10 minutes of witnessed dysphasia but no associated neurologic defects. Patient was admitted for rule out stroke and was found to have a TIA. CT of head showed some suspicious findings of poor differentiation between the rodriguez and white matter but MRI showed no acute abnormalities. Echo showed EF of 60-65% with normal LV size, moderate LVD dysfunction, normal RV, and no evidence of pulmonary HTN or valvular dysfuction. Carotid duplex showed patency of the carotid arteries bilaterally. Neurology was consulted and due to patient having a TIA while on Aspirin, antiplatelet therapy was switched to Plavix 75mg QD with a bridge of two days of Aspirin and Plavix. Of note, patient was hypokalemic during hospital stay ranging from initial of 3.3 to 3.1 and 40meq of potassium were replaced daily as there was no record of patient being on potassium as a home medication. When asked on day of discharge patient stated that she actually takes 6 tablets of potassium at home. Patient was instructed to resume normal potassium dose at home and to f/u with her primary care physician in 7 days for repeat lab of potassium. Patient was discharged home with the diagnosis of TIA on aspirin therapy and was given Plavix 75mg QD for treatment. Patient was instructed/given an appointment to follow-up with Dr. Smith in 1 week. - Time Spent with Patient Total time spent providing and/or coordinating discharge services: - Constitutional Vitals: Temp Pulse Resp BP Pulse Ox 97.9 F 88 16 128/80 94 02/11/17 03:05 02/11/17 03:05 02/11/17 03:05 02/11/17 03:05 02/11/17 03:05 General appearance: Present: cooperative, A&O X 3, morbidly obese, pleasant, answers questions appropriately Exam: Constitutional: Alert, in no acute distress, well nourished, well developed. Head: Normocephalic, atraumatic, normal contour and symmetric, no masses, lesions or scars Eyes: PERRL, EOMI, Heart: Normal, regular rate and rhythm, no murmurs Lungs: Clear to auscultation, no wheezes, rales, or rhonchi Abdomen: Soft, nondistended, nontender, and no masses palpable,, no guarding or rigidity. Extremities: No clubbing, cyanosis, or edema, radial pulse +2/4, capillary refill <2sec. Skin: Skin warm and dry, no lesions, no rashes, no jaundice Neurologic: normal speech pattern without of dysphasia or disarthria, Cranial nerves II through XII, no focal deficits, strength 5/5 in all extremities, sensation intact, Psych: Cooperative with exam, good eye contact, cognitive function intact, judgment good insight good, speech clear, thought process logical, and goal directed
[2017-02-11] MEDS: *HR* Heparin 5,000 UNIT/ML VIAL SQ SCH (08:45)
[2017-02-11] MEDS: Aspirin Enteric Coated 81 MG Tablet PO SCH (08:46)
[2017-02-11] MEDS: hydroCHLOROthiazide 25 MG TABLET PO SCH (08:46)
--- NOTE | 2017-02-11 09:49 | Neurology Progress Note ---
Date of Encounter: 02/11/17 Time of Encounter: 08:20 Assessment and Plan (1) TIA (transient ischemic attack) Current Visit: Yes Status: Acute This patient was apparently seems to have symptoms which are quite typical of a TIA to the previous history of TIA in the past for similar episodes now she is back to her baseline as patient has been taking an aspirin on a regular basis and now she had this event I suggest that she should be started on another antiplatelet agent like Plavix and we can discontinue aspirin after 2 days of overlap. She would certainly require stroke workup including MRI of the brain especially when her CT scan does some questionable abnormality need to exclude any structural abnormality And at the same time need to see indeed if she had an infarct on it was only TIA . Patient would also need a carotid duplex as well as echocardiogram and need to monitor her cholesterol. At this time she seems to be back to her baseline do not think that she would require any rehabilitation or physical therapy evaluation As patient has this event while she is on an aspirin suggested to change to Plavix 75 mg daily Discontinue aspirin as she has a history of uterine bleeding in the past would not recommend dual antiplatelet therapy Qualifiers: Transient cerebral ischemia type: unspecified Qualified Code(s): G45.9 - Transient cerebral ischemic attack, unspecified (2) Abnormal CT of brain Current Visit: Yes Status: Acute (3) Hypertension Current Visit: Yes Status: Chronic Qualifiers: Hypertension type: essential hypertension Qualified Code(s): I10 - Essential (primary) hypertension Subjective Interval history: Patient doing good. Denies any new weakness or any other new symptoms overall she is a stable MRI of the brain is negative for any acute stroke Objective - Constitutional Vitals: Temp Pulse Resp BP Pulse Ox 97.5 F L 80 18 146/82 93 02/11/17 07:12 02/11/17 07:12 02/11/17 07:12 02/11/17 07:12 02/11/17 07:12 - Neurological Exam Motor Examination: Present: full strength in all major muscle groups Motor examination - left side: 5/5: deltoids, biceps, triceps, wrist flexion, wrist extension, hip flexors, motorcycle technician, quadriceps, tibialis Anterior, toe extension (EHL), plantarflexion Mental Status Examination: Present: awake, alert, oriented to person, oriented to place, oriented to time, follows commands appropriately, answers questions appropriately, no agnosia, no aphasia, no aproxia Cranial nerve examination: Present: PERRL, EOMI, visual dunaway intact, corneal reflexes brisk symmetrically, sensory to face intact, mastication intact, no facial asymmetry is present, no dysarthria, hearing is intact symmetrically, soft palate elevates bilaterally upon phonation, gag reflex intact, flexes SCM and trapezius muscles symmetrically with full power, tongue protrudes midline, no atrophy or facial fasiculations present Cerebellar examination: Present: no dysmetria, performs finger to nose and heel to tam symmetrically without ataxia, no gait ataxia, no truncal ataxia, no difficulty with rapid alternating movements Results - Laboratory Findings CBC and BMP: 02/11/17 05:38 02/11/17 05:38 Abnormal lab findings: Abnormal lab results Potassium 3.1 mEq/L (3.5-4.5) L 02/11/17 05:38 Glucose 114 mg/dL (70-99) H 02/11/17 05:38 POC Glucose 102 (58-89) H 02/11/17 07:59 HDL Cholesterol 39 mg/dL (40-59) L 02/11/17 05:38 Ur Leukocyte Esterase Trace (Negative) H 02/09/17 20:37 Urine Microscopic WBC 5-15 per hpf (0-3) H 02/09/17 20:37 Ur Squamous Epith Cells Many per lpf (None-Few) H 02/09/17 20:37 Ur Culture Indicated? YES (NO) A 02/09/17 20:37 Consult Discharge Plan - Plan Instructions: Transient Ischemic Attack (DC) Additional Instructions: Follow-up with your primary care physician in 1 week. Continue taking home medications. Take Aspirin tomorrow and then stop. Begin taking Plavix. Return to the ED if symptoms worsen or new symptoms arise. Referrals: Khalida Smith MD [Primary Care Provider] - Prescriptions: Clopidogrel [Plavix] 75 mg PO DAILY #14 tab Potassium Chloride Elixir [Potassium Chloride] 20 meq PO DAILY #1 bottle
--- NOTE | 2017-02-11 13:14 | Carotid Imaging Report ---
Carotid Duplex Patient Name:Muna Blanco Order Number:[id number] Procedure Date:02/10/2017 Date:1940Age:76 yrs Gender:Female Rt.BP:136 / 80 mmHgHeart Rate: Location:[facility] Room #: 2NE23 Diesel Powerplant Mechanic:Sadia Duggan RVT Referring MD:Anjel Lou MD Reading MD:Leon Vázquez MD , FACS Primary Indications:TIA Risk Factors Yes/No Hypertension Yes Hypercholesterolemia Yes Hx of TIA Yes Impressions: Findings: Bilateral carotid systems essentially normal. Findings Carotid Duplex: Sesay scale imaging combined with Doppler flow analysis suggests normal findings bilaterally. Prior Study: No prior study available for comparison. Carotid Results Right PSV EDV Assessment Proximal CCA 93 16 Normal Mid CCA 93 16 Normal Distal CCA 88 16 Normal Bifurcation 84 17 Normal Proximal ICA 64 13 Normal Mid ICA 59 16 Normal Distal ICA 85 22 Normal ECA 66 0 Normal Vertebral Artery 45 13 Antegrade Flow Left PSV EDV Assessment Proximal CCA 86 14 Normal Mid CCA 83 17 Normal Distal CCA 65 13 Normal Bifurcation 63 14 Normal Proximal ICA 62 14 Normal Mid ICA 70 18 Normal Distal ICA 88 22 Normal ECA 71 8 Normal Vertebral Artery 47 8 Antegrade Flow Ratio's Right ICA/CCA Ratio: 0.91 ICA/CCA Values: 85/93 Left ICA/CCA Ratio: 1.06 ICA/CCA Values: 88/83 Updated by Leon Vázquez MD, FACS on 02/11/2017 1:07:43 PM Leon Vázquez MD electronically signed on 02/11/2017 1:08:07 PM with status of Final
--- NOTE | 2017-02-11 21:50 | Electrocardiograph Report ---
[place] [id number] Test Date: 2017-02-09 Pat Name: Muna Blanco Department: 102 Room: 2NE23 Gender: F Recruiter: [place] : 1940 Requested By: Max Mariano Order Number: [id number] Reading MD: Gerhard Diaz MD Measurements Intervals [place] Rate: 93 P: 46 RI: 155 QRS: -23 QRSD: 81 T: 24 QT: 316 QTc: 367 Interpretive Statements SINUS RHYTHM LOW QRS VOLTAGE IN PRECORDIAL LEADS BASELINE ARTIFACT Electronically Signed On 02-11-2017 21:48:51 EDT by Gerhard Diaz MD
== END 2017-02-11 11:23 | disposition home or self-care (01) | DRG 69 ==
LOC: EMEROO 19:50 → SUATTDRO 23:10 → 2NENU 23:10
PROVIDERS: ADMIT Family Medicine; ATTEND Internal Medicine

== ENCOUNTER 2019-03-18 22:39 | Observation (INO) ==
[2019-03-18 23:50] LABS: Basophils # 0.1 K/mcL (0.0-0.2); Basophils % 0.7 %; Eosinophils # 0.1 K/mcL (0.0-0.6); Eosinophils % 1.6 %; Hematocrit 43.1 % (35.3-44.9); Hemoglobin 14.9 g/dL (11.5-15.4); Immature Granulocytes % 0.2 % (0-4); Lymphocytes # 1.4 K/mcL (0.6-4.6); Lymphocytes % 16.8 %; Mean Corpuscular HGB Conc 34.6 g/dL (31.6-35.5); Mean Corpuscular Hemoglobin 30.3 pg (28.0-33.3); Mean Corpuscular Volume 87.8 fL (83.0-100.0); Mean Platelet Volume 11.4 fL (9.4-12.4); Monocytes # 0.8 K/mcL (0.0-1.3); Monocytes % 9.5 %; Platelet Count 248 K/mcL (140-400); Red Blood Count 4.91 M/mcL (3.82-4.97); Red Cell Distribution Width 13.3 % (11.5-14.5); Segmented Neutrophils % 71.2 %; White Blood Count 8.5 K/mcL (4.3-11.1)
[2019-03-19 00:01] LABS: Alanine Aminotransferase 23 Units/L (7-52); Albumin 3.6 g/dL (3.5-5.7); Albumin/Globulin Ratio 1.3 (1.1-2.2); Alkaline Phosphatase 83 Units/L (34-104); Aspartate Amino Transferase 14 Units/L (13-39); BUN/Creatinine Ratio 27 (6-26); Bilirubin,Total 0.3 mg/dL (0.3-1.0); Blood Urea Nitrogen 16 mg/dL (8-23); Carbon Dioxide 32 mEq/L (23-29); Chloride 103 mEq/L (98-107); Globulin 2.8 g/dL (2.4-3.5); Glucose 116 mg/dL (70-105); Osmolality,Calculated 292 (280-300); Potassium 4.1 mEq/L (3.5-5.1); Sodium 140 mEq/L (136-145); Total Protein 6.4 g/dL (6.4-8.9); eGFR For African Americans > 60 (> 60); eGFR For Non-African Americans > 60 (> 60)
[2019-03-19 00:32] LABS: Bilirubin,Urine Negative (Negative); Blood,Urine Negative (Negative); Clarity,Urine Clear (Clear); Color,Urine Yellow (Yellow); Glucose,Urine (UA) Normal (Normal); Ketones,Urine Negative (Negative); Leukocyte Esterase,Urine Negative (Negative); Nitrite,Urine Negative (Negative); PH,Urine 6.5 pH Units (5.0-8.0); Protein,Urine Negative (Neg-Trace); Specific Gravity,Urine 1.008 (1.010-1.025); Urobilinogen,Urine Normal (Normal)
[2019-03-19] MEDS ORDERED: Aspirin 325 MG TABLET PO ONE (02:08)
[2019-03-19] MEDS ORDERED: Naloxone 0.4 MG/ML INJ IVP PRN (03:54)
[2019-03-19 04:51] LABS: Hematocrit 42.8 % (35.3-44.9); Hemoglobin 14.6 g/dL (11.5-15.4); Mean Corpuscular HGB Conc 34.1 g/dL (31.6-35.5); Mean Corpuscular Hemoglobin 29.7 pg (28.0-33.3); Mean Corpuscular Volume 87.2 fL (83.0-100.0); Mean Platelet Volume 11.6 fL (9.4-12.4); Platelet Count 237 K/mcL (140-400); Red Blood Count 4.91 M/mcL (3.82-4.97); Red Cell Distribution Width 13.4 % (11.5-14.5); White Blood Count 8.9 K/mcL (4.3-11.1)
[2019-03-19 04:59] LABS: BUN/Creatinine Ratio 31 (6-26); Blood Urea Nitrogen 16 mg/dL (8-23); Calcium 9.2 mg/dL (8.6-10.3); Carbon Dioxide 30 mEq/L (23-29); Chloride 102 mEq/L (98-107); Glucose 115 mg/dL (70-105); Osmolality,Calculated 292 (280-300); Potassium 3.6 mEq/L (3.5-5.1); Sodium 140 mEq/L (136-145); eGFR For African Americans > 60 (> 60); eGFR For Non-African Americans > 60 (> 60)
[2019-03-19] MEDS ORDERED: *HR* Heparin 5,000 UNIT/ML VIAL SQ SCH (06:00)
[2019-03-19] MEDS ORDERED: Ibuprofen 600 MG TABLET PO PRN (06:18)
[2019-03-19] MEDS ORDERED: diazePAM 5 MG TABLET PO SCH (09:00)
[2019-03-19] MEDS ORDERED: hydroCHLOROthiazide 25 MG TABLET PO SCH ×2 (09:00)
[2019-03-19] MEDS ORDERED: Loratadine 10 MG TABLET PO SCH (09:00)
[2019-03-19] MEDS ORDERED: Aspirin Enteric Coated 81 MG Tablet PO SCH (09:00)
[2019-03-19 11:17] VITALS: BP 136/74
[2019-03-19 12:17] LABS: Folate 17.9 ng/mL (3.0-16.0)
[2019-03-19] MEDS ORDERED: Cyanocobalamin (B-12) 1,000 MCG/ML VIAL IM ONE (12:38)
== END 2019-03-19 16:40 | disposition home or self-care (01) ==
LOC: EMEROOARM 22:39 → 3NENU 22:39 → SUATTDRO 03-19 02:39 → 3NENU 03-19 03:19
PROVIDERS: ADMIT Internal Medicine; ATTEND Family Medicine

== ENCOUNTER 2022-01-08 21:51 | Inpatient (IN) ==
[2022-01-08] MEDS ORDERED: Iopamidol - 370 500 ML MLS IVP ONE (22:07)
[2022-01-08 23:21] LABS: Basophils # 0.1 K/mcL (0.0-0.2); Basophils % 0.9 %; Eosinophils # 0.2 K/mcL (0.0-0.6); Eosinophils % 2.6 %; Hematocrit 38.3 % (35.3-44.9); Lymphocytes # 0.7 K/mcL (0.6-4.6); Lymphocytes % 10.1 %; Mean Corpuscular HGB Conc 33.9 g/dL (31.6-35.5); Mean Corpuscular Volume 103.2 fL (83.0-100.0); Mean Platelet Volume 10.6 fL (9.4-12.4); Monocytes # 0.8 K/mcL (0.0-1.3); Monocytes % 10.9 %; Neutrophils # 5.2 K/mcL (1.6-8.9); Platelet Count 253 K/mcL (140-400); Red Blood Count 3.71 M/mcL (3.82-4.97); Red Cell Distribution Width 13.9 % (11.5-14.5); Segmented Neutrophils % 74.5 %
[2022-01-08 23:33] LABS: INR 1.1; Prothrombin Time 12.6 Seconds (9.4-12.1)
[2022-01-08 23:37] LABS: ABG Base Excess 7 mEq/L (-2 to 3); ABG HCO3 37 mEq/L (21-27); ABG Oxygen Saturation 92 % (95-98); ABG PCO2 81 mmHg (35-45); ABG PH 7.27 pH Units (7.32-7.45); ABG PO2 77 mmHg (85-104); ABG TCO2 39 mEq/L (20-26)
[2022-01-08 23:40] LABS: Alanine Aminotransferase 14 Units/L (7-52); Albumin 3.5 g/dL (3.5-5.7); Alkaline Phosphatase 70 Units/L (34-104); Aspartate Amino Transferase 16 Units/L (13-39); BUN/Creatinine Ratio 35 (6-26); Bilirubin,Total 0.3 mg/dL (0.3-1.0); Blood Urea Nitrogen 17 mg/dL (8-23); Calcium 8.6 mg/dL (8.6-10.3); Carbon Dioxide 35 mEq/L (23-29); Chloride 89 mEq/L (98-107); Globulin 3.4 g/dL (2.4-3.5); Glucose 156 mg/dL (70-105); Lipase 6 Units/L (11-82); Magnesium 1.7 mg/dL (1.6-2.6); Osmolality,Calculated 273 (280-300); Sodium 129 mEq/L (136-145); Total Protein 6.9 g/dL (6.4-8.9)
[2022-01-09 00:09] LABS: Troponin I 0.04 ng/mL (< 0.04)
[2022-01-09 00:38] LABS: Adenovirus Not Detected (Not Detect); Bordetella Pertussis Not Detected (Not Detect); Chlamydophila pneumoniae Not Detected (Not Detect); Coronavirus 229E Not Detected (Not Detect); Coronavirus HKU1 Not Detected (Not Detect); Coronavirus NL63 Not Detected (Not Detect); Coronavirus OC43 Not Detected (Not Detect); Human Metapneumovirus Not Detected (Not Detect); Human Rhinovirus/Enterovirus Not Detected (Not Detect); Influenza A Subtype 2009 H1 Not Detected (Not Detect); Influenza B Not Detected (Not Detect); Mycoplasma pneumoniae Not Detected (Not Detect); Parainfluenza Virus 1 Not Detected (Not Detect); Parainfluenza Virus 2 Not Detected (Not Detect); Parainfluenza Virus 3 Not Detected (Not Detect); Parainfluenza Virus 4 Not Detected (Not Detect); Respiratory Syncytial Virus Not Detected (Not Detect); SARS-CoV-2 Not Detected (Not Detect)
[2022-01-09] MEDS ORDERED: cefTRIAXone 1,000 MG in Water for inj. (sterile) 10 ML IVP ONE (00:48)
[2022-01-09] MEDS ORDERED: Azithromycin 250 MG TABLET PO ONE (00:48)
[2022-01-09] MEDS ORDERED: Naloxone 0.4 MG/ML INJ IVP PRN (01:45)
[2022-01-09] MEDS ORDERED: Ondansetron 4 MG/2 ML VIAL IVP PRN (01:45)
[2022-01-09] MEDS ORDERED: MOM Conc 10 ML UD.LIQ PO PRN (01:45)
[2022-01-09] MEDS ORDERED: Melatonin 3 MG TABLET PO PRN (01:45)
[2022-01-09] MEDS: *HR* Heparin 5,000 UNIT/ML VIAL SQ SCH ×3 (05:17→21:06)
[2022-01-09 06:24] LABS: ABG Base Excess 6 mEq/L (-2 to 3); ABG HCO3 35 mEq/L (21-27); ABG Oxygen Saturation 95 % (95-98); ABG PCO2 68 mmHg (35-45); ABG PH 7.32 pH Units (7.32-7.45); ABG PO2 84 mmHg (85-104); ABG TCO2 37 mEq/L (20-26); Blood Gas Modality AVAPS; Blood Gas VT 450 cc
[2022-01-09 07:21] LABS: Basophils # 0.1 K/mcL (0.0-0.2); Basophils % 0.8 %; Eosinophils # 0.2 K/mcL (0.0-0.6); Eosinophils % 2.6 %; Hemoglobin 12.5 g/dL (11.5-15.4); Immature Granulocytes % 1.1 % (0-4); Lymphocytes # 0.7 K/mcL (0.6-4.6); Mean Corpuscular HGB Conc 32.9 g/dL (31.6-35.5); Mean Corpuscular Hemoglobin 34.3 pg (28.0-33.3); Mean Corpuscular Volume 104.4 fL (83.0-100.0); Mean Platelet Volume 10.9 fL (9.4-12.4); Monocytes # 0.7 K/mcL (0.0-1.3); Monocytes % 10.9 %; Neutrophils # 4.8 K/mcL (1.6-8.9); Nucleated Red Blood Cells 0.3 /100 WBC (0); Platelet Count 270 K/mcL (140-400); Red Blood Count 3.64 M/mcL (3.82-4.97); Red Cell Distribution Width 13.8 % (11.5-14.5); Segmented Neutrophils % 73.6 %; White Blood Count 6.5 K/mcL (4.3-11.1)
[2022-01-09 07:39] LABS: BUN/Creatinine Ratio 29 (6-26); Blood Urea Nitrogen 14 mg/dL (8-23); Carbon Dioxide 37 mEq/L (23-29); Chloride 90 mEq/L (98-107); Glucose 132 mg/dL (70-105); Osmolality,Calculated 272 (280-300); Potassium 4.4 mEq/L (3.5-5.1); Sodium 130 mEq/L (136-145)
[2022-01-09 08:07] LABS: Thyroid Stimulating Hormone 2.64 mcIU/mL (0.340-5.600)
[2022-01-09] MEDS: Azithromycin 250 MG TABLET PO SCH (09:01)
[2022-01-09] MEDS ORDERED: Ondansetron ODT 4 MG TAB.RAPDIS SL PRN (09:54)
[2022-01-09] MEDS ORDERED: 0.9 % Sodium Chloride 1,000 ML IVC SCH (12:00)
[2022-01-09] MEDS: 0.9 % Sodium Chloride 1,000 ML IVC SCH ×2 (12:38→22:43)
[2022-01-09] MEDS ORDERED: Fluticasone Propionate Nasal 50 MCG/SPRAY BOTTLE NS PRN (13:37)
[2022-01-09] MEDS: Acetaminophen 325 MG TABLET PO PRN (14:38)
[2022-01-09] MEDS: Cyanocobalamin (B-12) 1,000 MCG TABLET PO SCH (14:38)
[2022-01-09] MEDS: cefTRIAXone 1,000 MG in 0.9 % Sodium Chloride Mini Bag 100 ML IVPB SCH (18:06)
[2022-01-10 03:38] LABS: Bilirubin,Urine Negative (Negative); Blood,Urine Negative (Negative); Clarity,Urine Clear (Clear); Color,Urine Light-Yellow (Yellow); Glucose,Urine (UA) Normal (Normal); Ketones,Urine Negative (Negative); Leukocyte Esterase,Urine Negative (Negative); Nitrite,Urine Negative (Negative); PH,Urine 6.5 pH Units (5.0-8.0); Protein,Urine Trace mg/dL (Neg-Trace); Specific Gravity,Urine 1.017 (1.010-1.025); Urobilinogen,Urine Normal (Normal)
[2022-01-10] MEDS: *HR* Heparin 5,000 UNIT/ML VIAL SQ SCH ×3 (06:08→20:09)
[2022-01-10] MEDS: Acetaminophen 325 MG TABLET PO PRN (08:29)
[2022-01-10] MEDS: Azithromycin 250 MG TABLET PO SCH (08:29)
[2022-01-10 10:07] LABS: BUN/Creatinine Ratio 33 (6-26); Blood Urea Nitrogen 15 mg/dL (8-23); Calcium 8.5 mg/dL (8.6-10.3); Carbon Dioxide 29 mEq/L (23-29); Chloride 95 mEq/L (98-107); Glucose 122 mg/dL (70-105); Osmolality,Calculated 270 (280-300); Potassium 4.9 mEq/L (3.5-5.1); Sodium 129 mEq/L (136-145)
[2022-01-10] MEDS: 0.9 % Sodium Chloride 1,000 ML IVC SCH (10:36)
[2022-01-10] MEDS ORDERED: Ipratropium/Albuterol Neb 3 ML ONE (11:23)
[2022-01-10 11:30] LABS: Basophils # 0.1 K/mcL (0.0-0.2); Basophils % 1.4 %; Eosinophils # 0.3 K/mcL (0.0-0.6); Eosinophils % 3.5 %; Hematocrit 31.7 % (35.3-44.9); Hemoglobin 10.7 g/dL (11.5-15.4); Immature Granulocytes % 1.2 % (0-4); Lymphocytes # 0.8 K/mcL (0.6-4.6); Lymphocytes % 9.7 %; Mean Corpuscular HGB Conc 33.8 g/dL (31.6-35.5); Mean Corpuscular Volume 103.6 fL (83.0-100.0); Monocytes # 0.8 K/mcL (0.0-1.3); Monocytes % 10.1 %; Platelet Count 289 K/mcL (140-400); Red Blood Count 3.06 M/mcL (3.82-4.97); Segmented Neutrophils % 74.1 %
[2022-01-10] MEDS: Ipratropium/Albuterol Neb 3 ML IH SCH ×4 (11:30→23:00)
[2022-01-10] MEDS: Aspirin Enteric Coated 81 MG Tablet PO SCH (15:12)
[2022-01-10] MEDS ORDERED: Iopamidol - 370 500 ML MLS IVP ONE (15:34)
[2022-01-10] MEDS ORDERED: Naloxone 0.4 MG/ML INJ IVP PRN (16:52)
[2022-01-10] MEDS: *HR* HYDROcodone/Acet 5/325 mg TABLET PO PRN (17:15)
[2022-01-10] MEDS: cefTRIAXone 1,000 MG in 0.9 % Sodium Chloride Mini Bag 100 ML IVPB SCH (17:16)
[2022-01-11] MEDS: Ipratropium/Albuterol Neb 3 ML IH SCH ×6 (04:02→23:29)
[2022-01-11 04:06] LABS: Basophils # 0.1 K/mcL (0.0-0.2); Basophils % 1.7 %; Eosinophils # 0.3 K/mcL (0.0-0.6); Eosinophils % 4.9 %; Hematocrit 37.8 % (35.3-44.9); Immature Granulocytes % 0.9 % (0-4); Lymphocytes # 0.8 K/mcL (0.6-4.6); Lymphocytes % 13.6 %; Mean Corpuscular HGB Conc 32.3 g/dL (31.6-35.5); Mean Corpuscular Hemoglobin 34.7 pg (28.0-33.3); Mean Corpuscular Volume 107.4 fL (83.0-100.0); Mean Platelet Volume 11.3 fL (9.4-12.4); Monocytes # 0.5 K/mcL (0.0-1.3); Monocytes % 9.3 %; Platelet Count 216 K/mcL (140-400); Red Blood Count 3.52 M/mcL (3.82-4.97); Red Cell Distribution Width 14.2 % (11.5-14.5); Segmented Neutrophils % 69.6 %; White Blood Count 5.7 K/mcL (4.3-11.1)
[2022-01-11 04:08] LABS: Hemoglobin 12.2 g/dL (11.5-15.4)
[2022-01-11 04:22] LABS: BUN/Creatinine Ratio 36 (6-26); Blood Urea Nitrogen 16 mg/dL (8-23); Calcium 8.7 mg/dL (8.6-10.3); Carbon Dioxide 35 mEq/L (23-29); Chloride 92 mEq/L (98-107); Glucose 107 mg/dL (70-105); Osmolality,Calculated 278 (280-300); Potassium 4.3 mEq/L (3.5-5.1); Sodium 133 mEq/L (136-145)
[2022-01-11] MEDS: *HR* HYDROcodone/Acet 5/325 mg TABLET PO PRN ×3 (04:57→23:25)
[2022-01-11] MEDS: *HR* Heparin 5,000 UNIT/ML VIAL SQ SCH ×3 (04:57→21:07)
[2022-01-11] MEDS: Azithromycin 250 MG TABLET PO SCH (09:45)
[2022-01-11] MEDS: Aspirin Enteric Coated 81 MG Tablet PO SCH (09:45)
[2022-01-11] MEDS: Cyanocobalamin (B-12) 1,000 MCG TABLET PO SCH (13:36)
[2022-01-11] MEDS ORDERED: Iopamidol - 370 500 ML MLS IVP ONE (14:30)
[2022-01-11] MEDS ORDERED: Gadolinium Contrast Agent (WT Based) IV PRN (14:50)
[2022-01-11] MEDS: cefTRIAXone 1,000 MG in 0.9 % Sodium Chloride Mini Bag 100 ML IVPB SCH (17:18)
[2022-01-11] MEDS: diazePAM 5 MG TABLET PO PRN (17:39)
[2022-01-12 03:54] LABS: BUN/Creatinine Ratio 40 (6-26); Blood Urea Nitrogen 16 mg/dL (8-23); Calcium 8.7 mg/dL (8.6-10.3); Carbon Dioxide 37 mEq/L (23-29); Chloride 92 mEq/L (98-107); Glucose 105 mg/dL (70-105); Osmolality,Calculated 278 (280-300); Potassium 3.9 mEq/L (3.5-5.1); Sodium 133 mEq/L (136-145)
[2022-01-12 03:57] LABS: Basophils # 0.1 K/mcL (0.0-0.2); Basophils % 1.9 %; Eosinophils # 0.5 K/mcL (0.0-0.6); Eosinophils % 8.1 %; Hematocrit 34.5 % (35.3-44.9); Hemoglobin 11.3 g/dL (11.5-15.4); Immature Granulocytes % 0.7 % (0-4); Lymphocytes # 0.9 K/mcL (0.6-4.6); Lymphocytes % 16.2 %; Mean Corpuscular HGB Conc 32.8 g/dL (31.6-35.5); Mean Corpuscular Hemoglobin 34.2 pg (28.0-33.3); Mean Corpuscular Volume 104.5 fL (83.0-100.0); Monocytes # 0.4 K/mcL (0.0-1.3); Monocytes % 7.6 %; Neutrophils # 3.7 K/mcL (1.6-8.9); Platelet Count 213 K/mcL (140-400); Red Cell Distribution Width 13.7 % (11.5-14.5); Segmented Neutrophils % 65.5 %; White Blood Count 5.7 K/mcL (4.3-11.1)
[2022-01-12] MEDS: Ipratropium/Albuterol Neb 3 ML IH SCH ×6 (04:04→23:04)
[2022-01-12] MEDS: *HR* HYDROcodone/Acet 5/325 mg TABLET PO PRN ×3 (05:35→18:33)
[2022-01-12] MEDS: *HR* Heparin 5,000 UNIT/ML VIAL SQ SCH ×3 (05:35→21:21)
[2022-01-12] MEDS: Azithromycin 250 MG TABLET PO SCH (09:53)
[2022-01-12] MEDS: Aspirin Enteric Coated 81 MG Tablet PO SCH (09:54)
[2022-01-12] MEDS ORDERED: GADOBUTROL 30 MMOL/30 ML VIAL IVP ONE (10:12)
[2022-01-12 11:44] LABS: ABG Base Excess 9 mEq/L (-2 to 3); ABG HCO3 37 mEq/L (21-27); ABG Oxygen Saturation 98 % (95-98); ABG PCO2 67 mmHg (35-45); ABG PH 7.35 pH Units (7.32-7.45); ABG PO2 109 mmHg (85-104); ABG TCO2 39 mEq/L (20-26)
[2022-01-12] MEDS: cefTRIAXone 1,000 MG in 0.9 % Sodium Chloride Mini Bag 100 ML IVPB SCH (17:20)
[2022-01-12] MEDS: diazePAM 5 MG TABLET PO PRN (21:21)
[2022-01-13] MEDS: *HR* HYDROcodone/Acet 5/325 mg TABLET PO PRN ×2 (00:05→07:29)
[2022-01-13] MEDS: Ipratropium/Albuterol Neb 3 ML IH SCH ×6 (03:28→23:40)
[2022-01-13] MEDS: *HR* Heparin 5,000 UNIT/ML VIAL SQ SCH ×2 (07:30→15:18)
[2022-01-13] MEDS: Azithromycin 250 MG TABLET PO SCH (08:47)
[2022-01-13] MEDS: Aspirin Enteric Coated 81 MG Tablet PO SCH (08:47)
[2022-01-13 14:51] VITALS: BP 126/67; PULSE 88; TEMP 97.7
[2022-01-13] MEDS: Cyanocobalamin (B-12) 1,000 MCG TABLET PO SCH (15:19)
[2022-01-13 15:24] VITALS: O2SAT 98
[2022-01-13] MEDS: cefTRIAXone 1,000 MG in 0.9 % Sodium Chloride Mini Bag 100 ML IVPB SCH (18:04)
[2022-01-14] MEDS: Ipratropium/Albuterol Neb 3 ML IH SCH (04:09)
== END 2022-01-13 17:00 | DRG 871 ==
LOC: EMEROOARM 21:51 → 2NENU 21:51 → OBSVTOIN 01-09 01:18 → SUATTDRO 01-09 01:18 → 2NENU 01-09 02:23
PROVIDERS: ADMIT Student in an Organized Health Care Education/Training Program; ATTEND Internal Medicine